=== PATIENT | male | born 1980 | race Caucasian/White ===

== ENCOUNTER 2021-01-14 19:01 | Emergency (ER) | payer OTHER ==
[~2021-01-14] VITALS: Ht 190.5 cm; Wt 142.9 kg
[~2021-01-14 19:01] MED LIST: FLEXERIL PO; HYDROCODONE-AP1 EAC6 PO; IBUPROFEN 800800 M1 PO; NOHOMEMEDICATIONS; SEROQUEL 50 MG50 MG PO
[2021-01-14] MEDS ORDERED: HYDROCHLOROTHIA25 M1 PO (19:30)
[2021-01-14] MEDS ORDERED: ORPHENADRINE C100 M2 (19:30)
[2021-01-14 21:04] LABS: URINE BILIRUBIN NEGATIVE (Negative); URINE BLOOD NEGATIVE (Negative); URINE CLARITY CLEAR; URINE COLOR YELLOW; URINE GLUCOSE-RANDOM NEGATIVE (Negative); URINE KETONES NEGATIVE (Negative); URINE LEUKOCYTES-REFLEX NEGATIVE (Negative); URINE NITRITE-REFLEX NEGATIVE (Negative); URINE PROTEIN NEGATIVE (Negative); URINE SPECIFIC GRAVITY 1.015 (1.005-1.030); URINE UROBILINOGEN 0.2 E.U./dl (0.2-1.0)
[2021-01-14 21:04] LABS: ABSOLUTE BASOPHILS 0.1 thou/uL (0.0-0.2); ABSOLUTE EOSINOPHILS 0.4 thou/uL (0.0-0.7); ABSOLUTE NEUTROPHILS 7.6 thou/uL (1.6-8.1); BASOPHILS 1.2 %; HEMATOCRIT 38.1 % (42.0-52.0); HEMOGLOBIN 13.1 gm/dL (14.0-18.0); LYMPHOCYTES 25.1 %; MCH 30.3 pg (26.0-34.0); MCHC 34.3 g/dL (28.0-37.0); MCV 88.2 fL (80.0-100.0); MONOCYTES 8.3 %; MPV 7.9 fl. (7.2-11.1); NUCLEATED RBCS 0 /100WBC; PLATELET COUNT* 422 thou/uL (150-400); POLYS 62.4 %; RBC 4.32 mil/uL (4.50-6.00); WBC 12.1 thou/uL (4.0-11.0)
[2021-01-14 21:11] LABS: AMP/METHAMP Negative (Negative); BARBITURATES Negative (Negative); BENZODIAZEPINES Negative (Negative); COCAINE POSITIVE (Negative); METHADONE Negative (Negative); OPIATES Negative (Negative); PCP Negative (Negative); THC Negative (Negative)
[2021-01-14 21:18] LABS: CALCIUM 9.5 mg/dL (8.5-10.1); CREATININE 0.8 mg/dL (0.6-1.3); POTASSIUM 3.9 mmol/L (3.5-5.1)
[2021-01-14 21:28] LABS: ALBUMIN 3.2 g/dL (3.4-5.0); TOTAL BILIRUBIN 0.1 mg/dL (<0.1-1.0); TOTAL PROTEIN 7.6 g/dL (6.4-8.2)
[2021-01-15] MEDS ORDERED: ZOFRAN ODT4 MG PO (01:50)
[2021-01-15] MEDS ORDERED: CARAFATE 1 GM TA1 GM PO (01:50)
[2021-01-15 02:16] VITALS: BP 173/114
--- NOTE | 2021-01-15 10:03 | EKG ---
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
== END 2021-01-15 02:16 | disposition home or self-care (01) ==
LOC: M.ERS 19:01
PROVIDERS: Nurse Practitioner Family
DX: R10.12 Left upper quadrant pain (principal); R07.89 Other chest pain; R06.00 Dyspnea, unspecified; F14.90 Cocaine use, unspecified, uncomplicated; I10 Essential (primary) hypertension; F17.210 Nicotine dependence, cigarettes, uncomplicated; Z79.899 Other long term (current) drug therapy

== ENCOUNTER 2021-05-15 14:55 | Emergency (ER) | payer OTHER ==
[~2021-05-15] VITALS: Ht 190.5 cm; Wt 154.2 kg
[~2021-05-15 14:55] MED LIST changes: +CARAFATE 1 GM TA1 GM PO; +HYDROCHLOROTHIA25 M1 PO; +ORPHENADRINE C100 M2; +ZOFRAN ODT4 MG PO
[2021-05-15] MEDS ORDERED: METFORMIN HCL500 M3 PO (15:05)
--- NOTE | 2021-05-15 15:09 | EKG ---
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 : 1980 Requested By: Seymour Arreguin Order Number: [id number] MD: Moo Kathleen Measurements Intervals [place] Rate: 115 P: 44 PA: 163 QRS: 48 QRSD: 105 T: 41 QT: 331 QTc: 458 Interpretive Statements Sinus tachycardi RsR' in V1 Probable left atrial enlargement septal infarct, age indeterminate Baseline wander in lead(s) I,II,aVR,aVF,V2,V3,V4,V5,V6 Compared to ECG 01/14/2021 19:37:12 Myocardial infarct finding now present Electronically Signed On 05-15-2021 15:09:09 CDT by Moo Kathleen [email or web address] <ELECTRONICALLY SIGNED> By: Moo Kathleen MD, FACC 05/15/21 1509 [id number] Moo Kathleen MD, FACC /EPI
[2021-05-15 15:11] LABS: ABSOLUTE BASOPHILS 0.2 thou/uL (0.0-0.2); ABSOLUTE EOSINOPHILS 0.2 thou/uL (0.0-0.7); ABSOLUTE LYMPHOCYTES 2.8 thou/uL (0.8-5.3); ABSOLUTE MONOCYTES 1.1 thou/uL (0.0-1.2); ABSOLUTE NEUTROPHILS 11.7 thou/uL (1.6-8.1); BASOPHILS 1.5 %; EOSINOPHILS 1.5 %; LYMPHOCYTES 17.4 %; MCH 28.3 pg (26.0-34.0); MCHC 33.4 g/dL (28.0-37.0); MCV 84.7 fL (80.0-100.0); MONOCYTES 6.9 %; MPV 7.6 fl. (7.2-11.1); NUCLEATED RBCS 0 /100WBC; PLATELET COUNT* 427 thou/uL (150-400); POLYS 72.7 %; RDW-CV 16.3 % (10.5-14.5); WBC 16.1 thou/uL (4.0-11.0)
[2021-05-15] MEDS ORDERED: HYDROCHLOROTHIA25 M1 PO (15:12)
[2021-05-15] MEDS ORDERED: CHILDREN'S ASPI81 M1 PO (15:13)
[2021-05-15] MEDS ORDERED: LEXAPRO20 MG PO (15:13)
[2021-05-15 15:24] LABS: CALCIUM 9.7 mg/dL (8.5-10.1); POTASSIUM 3.1 mmol/L (3.5-5.1)
[2021-05-15 15:39] LABS: ALBUMIN 3.4 g/dL (3.4-5.0); CK-MB MASS 1.3 ng/mL (<0.5-3.6); MAGNESIUM 1.8 mg/dL (1.8-2.4); TOTAL BILIRUBIN 0.3 mg/dL (<0.1-1.0); TOTAL PROTEIN 8.9 g/dL (6.4-8.2)
[2021-05-15 16:57] VITALS: BP 161/88
== END 2021-05-15 16:58 | disposition home or self-care (01) ==
LOC: M.ERS 14:55
PROVIDERS: Family Medicine
DX: R07.89 Other chest pain (principal); Z20.822 Contact with and (suspected) exposure to COVID-19; I10 Essential (primary) hypertension; F17.210 Nicotine dependence, cigarettes, uncomplicated

== ENCOUNTER 2021-07-15 18:57 | Emergency (ER) | payer OTHER ==
[~2021-07-15 18:57] MED LIST changes: +CHILDREN'S ASPI81 M1 PO; +LEXAPRO20 MG PO; +METFORMIN HCL500 M3 PO
== END 2021-07-15 19:59 | disposition left against medical advice (07) ==
LOC: M.ERS 18:57
DX: R53.1 Weakness (principal); R30.9 Painful micturition, unspecified; Z53.21 Procedure and treatment not carried out due to patient leaving prior to being seen by health care provider